=== PATIENT | male | born 1955 | race Caucasian/White ===

== ENCOUNTER 2019-06-02 16:48 | Inpatient (IN) ==
[2019-06-02 17:41] LABS: BASO# 0.01 X1000 (0.0-0.2); BASO% 0.1 % (0.0-0.8); EOS# 0.03 X1000 (0.0-0.7); EOS% 0.2 % (0.0-10.0); HEMATOCRIT 43.2 % (42.0-52.0); HEMOGLOBIN 14.4 g/dL (14.0-18.0); IMM GRAN# 0.03 X1000 (0.0-0.04); IMM GRAN% 0.2 % (0.0-0.5); LYMPH# 1.27 X1000 (1.2-3.4); LYMPH% 10.2 % (20.5-51.1); MCH 29.8 PG (27-31); MCHC 33.3 g/dL (33-37); MCV 89.3 FL (81-99); MONO# 0.99 X1000 (0.11-0.59); MPV 11.7 FL (7.4-10.4); NEUT# 10.07 X1000 (1.4-6.5); NEUT% 81.3 % (42.2-75.2); PLT 161 X1000 (130-400); RBC 4.84 XMIL (4.7-6.1); RDW 14.9 % (11.5-14.5)
--- NOTE | 2019-06-02 18:22 | Diag Imaging Result Doc PS360 ---
EXAM: CT HEAD W/O CONTRAST - 06/02/2019 HISTORY: AMS TECHNIQUE: CT head without contrast COMPARISON: None. FINDINGS: There is some generalized atrophic changes. There are mild chronic appearing microvascular ischemic changes. There is no indication of recent infarct, although acute infarcts may not be immediately visible. There is no evidence of intracranial hemorrhage, mass effect, midline shift, or hydrocephalus. There is mild prominence of the cisterna magna compatible with long-standing change. There is no evidence of skull fracture. Visualized portions of paranasal sinuses and mastoid air cells appear clear. IMPRESSION: No visible acute intracranial abnormality. No evidence of intracranial injury. No hemorrhage or mass effect. This exam was performed using automated exposure control, adjustment of mA or kV according to patient size, and/or use of iterative reconstruction technique. Electronically signed by Giacomo Bustamante 06/02/2019 6:20 PM
[2019-06-02 18:26] LABS: ALB/GLOB RATIO 0.8; ALBUMIN 3.6 g/dL (3.5-5.0); CALCIUM 8.2 mg/dL (8.8-10.2); CREATININE 2.3 mg/dL (0.7-1.2); POTASSIUM 3.7 mmol/L (3.5-5.1); TOTAL BILIRUBIN 0.74 mg/dL (0.20-1.00)
[2019-06-02] MEDS ORDERED: MORPHINE IV ONE (19:36)
[2019-06-02] MEDS ORDERED: ZOFRAN IV ONE (19:36)
[2019-06-02] MEDS ORDERED: NS 500 ML IV ONE (19:37)
--- NOTE | 2019-06-02 20:45 | Diag Imaging Result Doc PS360 ---
EXAM: CT ABDOMEN/PELVIS W/O CONTRAST - 06/02/2019 HISTORY: ap TECHNIQUE: CT renal stone search without contrast COMPARISON: None. FINDINGS: There is moderate bilateral hydronephrosis with perinephric edema. There is no obstructing ureteral stone identified. The urinary bladder is severely distended. The prostate is substantially enlarged, measuring 7.6 x 7.3 cm in maximum axial dimensions. There is mass effect on the base of the urinary bladder from the prostate. There is a 7 mm stone in the midline inferior urinary bladder, which is possibly located near the urethral orifice. There is no evidence of bowel obstruction. There is mild colonic diverticulosis. The perinephric edema extends near the cecum/ascending and descending colons. Alignment for this, there is no discrete appendicitis or diverticulitis identified. There is no free air. There are no calcified gallstones seen. There are lumbar spine degenerative changes noted. IMPRESSION: Moderate bilateral hydronephrosis, with perinephric edema. No obstructing ureteral stone identified. Severe distention of urinary bladder. Substantial enlargement of prostate, with mass effect on the base of the urinary bladder. 7 mm stone at midline inferior urinary bladder, which may be located near the urethral orifice. This exam was performed using automated exposure control, adjustment of mA or kV according to patient size, and/or use of iterative reconstruction technique. Electronically signed by Giacomo Bustamante 06/02/2019 8:43 PM
[2019-06-02 21:26] LABS: URINE SOURCE CLEAN CATCH
[2019-06-02 21:36] LABS: BILIRUBIN URINE NEGATIVE (NEGATIVE); BLOOD URINE MODERATE (NEGATIVE); COLOR ORANGE; GLUCOSE URINE NEGATIVE (NEGATIVE); KETONE URINE NEGATIVE (NEGATIVE); LEUKOCYTES URINE LARGE (NEGATIVE); NITRITE URINE NEGATIVE (NEGATIVE); PROTEIN URINE 50 mg/dL (NEGATIVE); SP GRAVITY URINE 1.017; TURBIDITY URINE TURBID (CLEAR); UROBILINOGEN URINE NORMAL (NORMAL)
[2019-06-02 21:45] LABS: UR EPITHELIAL CELLS <10 /HPF (<10); URINE BACTERIA 4+ /HPF; URINE RBC <10 /HPF (<10); URINE WBC TNTC /HPF (<10)
[2019-06-02 21:49] LABS: URINE CASTS NONE SEEN; URINE CRYSTALS NONE SEEN; URINE SMALL ROUND CELLS NONE SEEN; URINE YEAST NONE SEEN
[2019-06-03] MEDS ORDERED: ROCEPHIN 2 GM in NS 50 ML IV ONE (00:38)
[2019-06-03] MEDS ORDERED: MORPHINE IV ONE (00:38)
--- NOTE | 2019-06-03 01:05 | PROVIDER DOCUMENTATION ---
This chart was entered by Yana Swann Scribe, acting as scribe for Blair Floyd MD. HPI-Abdominal Pain/GI Problem - General Chief Complaint: Abdominal Pain Stated Complaint: CONFUSION/ABDOMINAL PAIN Time Seen by Provider: 06/02/19 17:03 Source: family (daughter) Unable to obtain history due to:: altered Allergies/Adverse Reactions: Patient Allergies Allergy/AdvReac Type Severity Reaction Status Date / Time No Known Allergies Allergy Verified 06/02/19 22:27 - History of Present Illness-ABD Nature of Presenting Problems: 63yom presents to ED cc abdominal pain, increased urinary retention, diarrhea and increased confusion. Daughter is at bedside and reports she was called to the assisted living where pt resides b/c the nurse found stool and urine all over pt room. Daughter reports pt kept saying, 'my stomach hurts'. Upon exam pt says 'yes' to everything and is standing beside bed bending over onto bed but is nontoxic in appearance. Pt has hx of enlarged prostate and dementia. Recently seen or treated by another doctor?: No Review of Systems - Adult - REVIEW OF SYSTEMS - ADULT ROS:: ROS per family (daughter) Constitutional: reports: see HPI. denies: chills, fever, fatique Eyes: reports: no symptoms reported Ears, Nose, Mouth & Throat: reports: no symptoms reported Cardiovascular: reports: no symptoms reported Respiratory: reports: no symptoms reported Gastrointestinal: reports: see HPI, abdominal pain, diarrhea. denies: nausea, vomiting Genitourinary: reports: see HPI, urinary retention (increased) Musculoskeletal: reports: no symptoms reported Integumentary: reports: no symptoms reported Neurological: reports: see HPI, other (increased confusion) Psychiatric: reports: no symptoms reported Endocrine: reports: no symptoms reported Hematologic/Lymphatic: reports: no symptoms reported Allergic/Immunologic: reports: no symptoms reported All Other Systems: Reviewed and Negative Past History - Adult - PAST MEDICAL HISTORY-ADULT Review of Records: reports: Nursing Assessment Review, Medications Reviewed, Social history reviewed & non-contributory. Major Childhood Illnesses: reports: denies history Cardiovascular: reports: denies history Respiratory: reports: denies history Gastrointestinal: reports: denies history Obstetrical/Gynecological: reports: denies history Genitourinary: reports: denies history Musculoskeletal: reports: denies history Neurological: reports: denies history Endocrine/Immune: reports: denies history Other Conditions: reports: denies history - IMMUNIZATION STATUS Childhood Immunizations: See Nurse Assessment Flu Vaccine: See Nurse Assessment - FAMILY HISTORY Family History: reviewed, not pertinent Physical Exam-General - PHYSICAL EXAM-ADULT Initial Vital Signs Reviewed: Yes - CONSTITUTIONAL General Appearance: appears well, alert, mild distress. negative: anxious, combative - EYES Eyes: PERRL/EOMI, pink conjunctivae. negative: photophobia - HEAD, EARS, NOSE, MOUTH & THROAT HENMT: normocephalic/atraumatic, moist mucous membranes. negative: angioedema - RESPIRATORY Respiratory: chest non-tender, lungs clear, normal breath sounds. negative: stridor, wheezing - CARDIOVASCULAR Cardiovascular: normal peripheral pulses, regular rate, rhythm, no edema. negative: bradycardia, tachycardia - MUSCULOSKELETAL Extremity: normal range of motion, normal inspection. negative: deformity - SKIN Integumentary: normal color. negative: diaphoresis, ecchymosis - PSYCHIATRIC Psych/Mental Status: normal mood/affect, oriented x 3. negative: anxious, disheveled Progress - PLAN OF CARE/RESULTS Progress/Plan/Lab Results: Vital Signs - 8 hr 06/02/19 17:00 Temperature 98.2 F Pulse Rate 84 Respiratory Rate 16 Blood Pressure 153/91 O2 Sat by Pulse Oximetry 97 Laboratory Results - last 24 hr 06/02/19 06/02/19 17:14 17:14 WBC 12.40 H RBC 4.84 Hgb 14.4 Hct 43.2 MCV 89.3 MCH 29.8 MCHC 33.3 RDW Std Deviation 14.9 H Plt Count 161 MPV 11.7 H Immature Gran % (Auto) 0.2 Neut % (Auto) 81.3 H Lymph % (Auto) 10.2 L Randolph % (Auto) 8.0 Eos % (Auto) 0.2 Baso % (Auto) 0.1 Immature Gran # (Auto) 0.03 Neut # (Auto) 10.07 H Lymph # (Auto) 1.27 Randolph # (Auto) 0.99 H Eos # (Auto) 0.03 Baso # (Auto) 0.01 Sodium 136 Potassium 3.7 Chloride 96 L Carbon Dioxide 20 L Anion Gap 20 BUN 56 H Creatinine 2.3 H Estimated GFR/1.73 m2 29 BUN/Creatinine Ratio 24 Glucose 145 H Calculated Osmolality 290 Calcium 8.2 L Total Bilirubin 0.74 AST 28 ALT 17 Alkaline Phosphatase 79 Total Protein 8.0 Albumin 3.6 Globulin 4.4 Albumin/Globulin Ratio 0.8 Amylase 29 Lipase 29 Orders Category Date Time Status Saline Loc NOW Care 06/02/19 17:[address] ABD/PELVIS W/IV CONT ONLY [CT] Stat Exams 06/02/19 19:[address] ABDOMEN/PELVIS W/O CONTRAST [CT] Stat Exams 06/02/19 19:[address] HEAD W/O CONTRAST [CT] Stat Exams 06/02/19 17:04 Completed AMYLASE [CHEM] Stat Lab 06/02/19 17:14 Completed CBC WITH DIFF [HEME] Stat Lab 06/02/19 17:14 Completed COMPREHENSIVE METABOLIC PANEL [CHEM] Stat Lab 06/02/19 17:14 Completed LIPASE [CHEM] Stat Lab 06/02/19 17:14 Completed UA NIMS W/REFLEX CULT [URINALYSIS] Stat Lab 06/02/19 17:04 Uncollected 0.9% Sodium Chloride Inj [Ns] 500 ml Med 06/02/19 19:37 Active IV 999 mls/hr Morphine Med 06/02/19 19:36 Discontinued 4 mg IV NOW ONE Ondansetron [Zofran] Med 06/02/19 19:36 Discontinued 4 mg IV NOW ONE Result Diagrams: 06/02/19 17:14 06/02/19 17:14 - CT/MRI 1 CT Study: Head Impression: See EMR Report (IMPRESSION: No visible acute intracranial abnormality. No evidence of intracranial injury. No hemorrhage or mass effect. This exam was performed using automated exposure control, adjustment of mA or kV according to patient size, and/or use of iterative reconstruction technique. Electronically signed by [employer] 06/02/2019 6:20 PM) 2 CT Study: Abdomen, Pelvis Impression: See EMR Report (IMPRESSION: Moderate bilateral hydronephrosis, with perinephric edema. No obstructing ureteral stone identified. Severe distention of urinary bladder. Substantial enlargement of prostate, with mass effect on the base of the urinary bladder. 7 mm stone at midline inferior urinary bladder, which may be located near the urethral orifice. This exam was performed using automated exposure control, adjustment of mA or kV according to patient size, and/or use of iterative reconstruction technique. Electronically signed by [employer] 06/02/2019 8:43 PM) - CONSULTS/PCP/HOSPITALIST Notification #1 *Consult/PCP/Hospitalist*: Dr. Dougherty/Urologist Time Discussed: 23:11 Consult Disposition: Will see in ED #2 Consult: Dr. Summers Time Discussed: 01:02 Consult Disposition: Admit (accepted pt) Departure - Departure Date of Disposition Decision: 06/02/19 Time of Disposition Decision: 01:02 DIAGNOSIS: Urinary retention UTI (urinary tract infection) Qualifiers: Urinary tract infection type: acute cystitis Hematuria presence: without hematuria Qualified Code(s): N30.00 - Acute cystitis without hematuria Disposition: ADMITTED INPATIENT 09 Certified Medical Emergency: Emergent Condition: Stable Additional Freetext Instructions: ED Follow Up Instructions: You have been treated by a care provider in the Emergency Department. These instructions are being provided to you so you can have an understanding of how to care for yourself upon discharge. Upon discharge from the Emergency Department, you are responsible for making arrangements for follow-up care by a physician of your choice. Take all prescribed medications as directed. Return to the Emergency Department immediately for any new or worsening symptoms. You may call the Physician Referral phone number at [phone] to obtain a list of Physicians who are taking new patients. Referrals and Follow-Ups: None,PCP [Primary Care Provider] - - Critical Care Note This patient required my direct & personal management of CC.: No Attestation - Physician/ AIDE Attestation Patient care was provided by Advanced Practice Provider:: No The physician spent face to face time with patient:: Yes Advanced Practice Provider documentation review:: Supervising physician onsite and consulted in the evaluation and care of this patient. The physician did have a face to face encounter with the patient. This chart was documented by the indicated scribe, (Yana Swann Scribe) and accurately reflects the services I performed and decisions made by me, Blair Floyd MD, as attested by the provider's signature.
[2019-06-03] MEDS ORDERED: ZOFRAN IV PRN (02:27)
[2019-06-03] MEDS ORDERED: MAXIPIME 1 GM in NS 50 ML IV SCH (02:27)
[2019-06-03] MEDS: NS 1,000 ML IV SCH ×2 (03:05→15:48)
[2019-06-03] MEDS: HEPARIN SUBQ SCH ×2 (03:43→15:46)
--- NOTE | 2019-06-03 05:59 | HISTORY AND PHYSICAL ---
REASON FOR ADMISSION: Acute confusion and difficulty voiding. HISTORY: Mr. Michael Pringle is a 63-year-old male with a past medical history of BPH, hypertension, and dementia who resides in a [facility] facility. He in the past has had prior episodes where he developed acute urinary retention. The daughter informs me that she was called to the fpc facility because the nurses had said her dad was more confused than usual. When she got there, she saw him in a very peculiar stance leaning forward and in distress complaining of lower abdominal pain. She says based on the upper prior episodes of acute urinary retention, she knew that he probably had retention problem, and they brought him to the hospital to be evaluated. The ER had difficulty getting a catheter in him, and had to call the urologist who remarks that this was the largest prostate they had ever seen. Currently, the patient said he feels much better since the insertion of the catheter. No antecedent fever or chills. The daughter does report that he was more confused than usual, but has calmed down since the catheter has been inserted. The patient is not a very good historian for obvious reasons. He denies any headaches or visual symptoms. No cardiorespiratory complaints. No antecedent hematuria or stools having some blood. No bleeding from any other orifice. REVIEW OF SYSTEMS: Twelve system review was done but limited. Positive findings noted as above except the patient had been having a few loose stools 2 to 3 days prior to this event, but no blood. He also reported having decreased appetite for the last 2 days. ALLERGIES: No known allergies. MEDICATIONS: List not available for review. PAST SURGICAL HISTORY: Appendectomy. Thyroidectomy. Testicular surgery. Kidney stone removal. Retinal surgery. SOCIAL HISTORY: Does not smoke, drink, or use illicit drugs. Lives in a fpc facility. FAMILY HISTORY: Notable for coronary artery disease. PRIMARY CARE PHYSICIAN: Shavonne Nolan LABORATORY: White count 58566, hemoglobin and hematocrit 12 and 43, and platelets 161,000 with 81% neutrophils. BUN is 66 and creatinine 2.3. Glucose 145. Calcium 8.2. Urinalysis with moderate blood, large leukocytes, urk-ogespkbd-mx-count WBCs, 4+ bacteria. Head CT was negative for any acute intracranial process, but CAT scan showed a very distended bladder with prostate measures 7 x 7 cm. There is a mass effect in the base of bladder from the prostate. A 7 mm stone midline inferior bladder near the ureteral orifice with moderate bilateral hydronephrosis and perinephric edema noted on CAT scan. PHYSICAL EXAMINATION: GENERAL: Calm and pleasant, elderly man who is laying in bed. He is alert and oriented only to person. VITAL SIGNS: Blood pressure 132/91, heart rate 83, respirations 18, temperature 98.1, and 98% on room air. HEENT: Head is normocephalic, atraumatic. Eyes: PERRLA, EOMI. He is anicteric, not pale. ENT exam is grossly normal. NECK: Supple. No JVD or carotid bruit. No thyromegaly. CHEST: Clear to auscultation. Good air entry both lung terrell. CARDIOVASCULAR: First and second heart sounds heard. No gallops, murmurs, or rubs. Rhythm is regular. ABDOMEN: Tenderness but no rebound or guarding. No CVA tenderness. Bowel sounds are hypoactive. RECTAL: Deferred at this time. EXTREMITIES: Good distal pulses. Volumes regular and symmetrical. No edema, clubbing or peripheral cyanosis. NEUROLOGICAL: No gross focal deficits. SKIN: Intact. No breakdown, lesions, or erythema. MUSCULOSKELETAL: Exam is grossly normal. ASSESSMENT: 1. Acute urinary retention secondary to BPH. 2. BPH. 3. Probable urinary tract infection. 4. Dementia. 5. Acute kidney injury probably secondary to poor oral intake and obstructive uropathy. PLAN: Patient will be hydrated. Strict I Os with strict input and output matching. Switch patient to Maxipime because of the patient's location in the facility to cover for remote possibility of Pseudomonas. Follow urine cultures. The patient's medication list is not available, but I do anticipate he will be on probably alpha reductase inhibitor and alpha receptor aneudy in light of her symptoms. Urologist was by to see him, and will follow up with him in the morning. Other than that, we have nothing else to offer the patient other than the aforementioned plan. No indication at this point. Consult claim trainee. Will need fluids and time to determine if patient's renal function will worsen. Please observe closely for post obstructive diuretic phase and to match I's and O's. cc: Primary Care Physician MD Shavonne Bennett
[2019-06-03] MEDS ORDERED: MORPHINE IV PRN (07:30)
[2019-06-03 08:31] LABS: HEMOGLOBIN A1C 5.8 % (4.8-6.0)
--- NOTE | 2019-06-03 08:33 | CONSULTATION ---
DATE OF CONSULTATION: 06/03/2019 CHIEF COMPLAINT: Inability to urinate with distended bladder. HISTORY OF PRESENT ILLNESS: Mr. Pringle is a 63-year-old who is a intermediate patient who has a history of dementia and cannot give any other history. The patient was brought in to the emergency room due to confusion as well as abdominal pain. A CT scan was performed which showed a very enlarged prostate with a distended bladder as well as significant right hydronephrosis down to the bladder itself with what appears reflux of urine bilaterally as he has mild to moderate bilateral hydronephrosis. Urology was consulted for catheter placement. There was no family at bedside and patient cannot interact with me to discuss. I reviewed his CT scan which showed a very distended bladder with a significant enlarged prostate with evidence of right hydronephrosis with some perinephric stranding on the right side with no obvious stone seen within the ureter itself. I think patient is having retention leading to his abdominal pain. The patient is unable to communicate so unable to obtain thorough physical exam PAST SURGICAL HISTORY, REVIEW OF SYSTEMS, ALLERGIES OR HOME MEDICATIONS: Unable to obtain at the time. After talking with his daughter this morning: ALLERGIES: NKDA. MEDICATIONS: Flomax 0.4 mg PAST MEDICAL HISTORY: 1. BPH 2. Dementia PAST SURGICAL HISTORY: 1. Appendectomy 2. Prostate Biopsy 3. Thyroidectomy 4. Kidney stone removal 5. Retinal surgery OBJECTIVE: Temperature 98.2, heart rate 76, blood pressure 156/91, oxygen saturation 97% on room air. General: Alert and oriented to person, but not place, time or situation. Respiratory: No increased work or breathing or audible wheezing. Cardiovascular: Normal rate and rhythm, no evidence of lower extremity edema. HEENT: Normocephalic, atraumatic. Pupils equal, round, reactive to light. : Normal phallus with orthoptic meatus. Evidence of blood at meatus and overlying suprapubic region. There is suprapubic tenderness to palpation and bladder distention. Normal phallus without lesions. ARMINDA: Significant enlarged prostate without masses or asymmetry. Extremities: The patient is moving all extremities. Neurologic: Alert but not oriented to place, time or situation. LABS: White blood cell count 12.4, hemoglobin 14.4, hematocrit 43.2, platelets 161,000. Sodium 136, potassium 3.7, chloride 96, bicarb 20, BUN 56, creatinine 2.3, glucose 145, calcium 8.2. IMAGING: CT scan removed which shows significant bladder distention with large heterogenous prostate. Evidence of bladder hydroureteronephrosis right greater than left. ASSESSMENT AND PLAN: Mr. Pringle is a 63-year-old who was a consult regarding a difficult catheter placement. No one at the bedside to provide a thorough past medical history, but was able to talk with his daughter this morning. He has not been seen at [place] previously, but was seen for Dr. Ramirez for elevated PSA and has undergo prior prostate biopsy. The patient came in complaining of abdominal pain. Nursing staff attempted to place catheters on at least 2 separate occasions and were unable to be successful. Urology was consulted for further recommendations. I evaluated the patient. The patient has normal phallus with blood present at the urethral meatus. Bilateral testicles palpated without masses or nodularity. Prostate is quite large and in firm. Using sterile technique, ultimately obtained a ZIPwire was able to pass through the urethra with ease up into the bladder and then passed a 18- [place] tip catheter over the wire into the bladder with return of a large amount of urine. There was light pink urine that returned. The balloon was inflated with 10 mL sterile water and placed to gravity drainage. Approximately 600 mL was returned while I was at bedside with several small clots that returned likely from prior difficult catheterization attempts. Would leave indwelling catheter in for at least 3 days and attempt a voiding trial at that time. Would plan to repeat a renal ultrasound to assess for resolution of hydronephrosis. We will continue to follow, please call with questions. cc: Will Dougherty MD [facility]
[2019-06-03 08:42] LABS: ALBUMIN 3.2 g/dL (3.5-5.0); CALCIUM 8.2 mg/dL (8.8-10.2); CREATININE 1.8 mg/dL (0.7-1.2); PHOSPHORUS 3.6 mg/dL (2.7-4.5); POTASSIUM 3.9 mmol/L (3.5-5.1)
[2019-06-03 09:47] LABS: HEMATOCRIT 42.4 % (42.0-52.0); HEMOGLOBIN 13.8 g/dL (14.0-18.0); MCH 29.4 PG (27-31); MCHC 32.5 g/dL (33-37); MCV 90.4 FL (81-99); MPV 12.2 FL (7.4-10.4); RBC 4.69 XMIL (4.7-6.1); RDW 14.9 % (11.5-14.5); WBC 8.15 X1000 (4.8-10.8)
[2019-06-03] MEDS: 1/2 NS 1,000 ML IV SCH (13:37)
[2019-06-03] MEDS: MAXIPIME 1 GM in NS 50 ML IV SCH (15:47)
[2019-06-03] MEDS: FLOMAX PO SCH (21:19)
[2019-06-04] MEDS: HEPARIN SUBQ SCH (01:52)
[2019-06-04] MEDS: 1/2 NS 1,000 ML IV SCH (01:52)
[2019-06-04] MEDS: MAXIPIME 1 GM in NS 50 ML IV SCH ×2 (01:59→15:59)
[2019-06-04 05:35] LABS: BASO# 0.01 X1000 (0.0-0.2); BASO% 0.2 % (0.0-0.8); EOS# 0.14 X1000 (0.0-0.7); EOS% 2.4 % (0.0-10.0); HEMATOCRIT 37.5 % (42.0-52.0); HEMOGLOBIN 12.5 g/dL (14.0-18.0); LYMPH# 1.55 X1000 (1.2-3.4); LYMPH% 26.7 % (20.5-51.1); MCH 29.6 PG (27-31); MCHC 33.3 g/dL (33-37); MCV 88.9 FL (81-99); MONO# 0.76 X1000 (0.11-0.59); MONO% 13.1 % (1.7-9.3); MPV 12.1 FL (7.4-10.4); NEUT# 3.34 X1000 (1.4-6.5); NEUT% 57.6 % (42.2-75.2); PLT 102 X1000 (130-400); RBC 4.22 XMIL (4.7-6.1); RDW 14.1 % (11.5-14.5)
[2019-06-04 06:31] LABS: AGAP 12; BUN 26 mg/dL (8-22); CALCIUM 7.7 mg/dL (8.8-10.2); CHLORIDE 100 mmol/L (98-107); COSMO 275; ESTIMATED GFR > 60; GLUCOSE 103 mg/dL (70-104); POTASSIUM 2.9 mmol/L (3.5-5.1); SODIUM 135 mmol/L (136-145); TCO2 23 mmol/L (25-35)
[2019-06-04] MEDS ORDERED: KLOR-CON PO ONE (07:40)
--- NOTE | 2019-06-04 08:36 | PROGRESS NOTE ---
DATE: 06/04/2019 SUBJECTIVE: No acute events. Yesterday, the patient had some bloody urinary output which has cleared overnight. The catheter this morning is draining clear yellow urine, approximately 1.8 L recorded. The patient had some discomfort in his bladder. He denies any abdominal pain. I talked with ex- at bedside who states he rested comfortably. OBJECTIVE: Vital Signs: Temperature 97.4 degrees, heart rate 75, blood pressure 122/58, oxygen saturation 97% on room air. General: No acute distress. Resting comfortably in bed. Alert. Lund to person but not place, time, or situation. Respiratory: Good respiratory effort without audible wheezing or rales. Abdomen: Soft, nontender, nondistended. No palpable masses. : No suprapubic tenderness. No CVA tenderness. Urethral catheter in place, draining clear yellow urine. Labs: White blood cell count 5.8, hemoglobin 12.5, hematocrit 37.5, platelets 102,000. Sodium 135, potassium 2.9, chloride 100, bicarb 23, BUN 26, creatinine 1.0, glucose 103. Urine culture, no growth to date. ASSESSMENT AND PLAN: Mr. Pringle is a 63-year-old with benign prostatic hypertrophy and dementia, who presents in evaluation for urinary retention with difficult catheterization and bilateral hydronephrosis. The patient had a Regan catheter inserted on Sunday night into Sunday morning, had drained some bloody output yesterday which is clear today. This is likely related to the size of his prostate as well as postobstructive hematuria. The patient has a quite large prostate on exam and on CT scan. Would plan to keep indwelling catheter in today, potentially would go for a voiding trial tomorrow. We will plan to obtain a renal ultrasound to assess for resolution of hydronephrosis today. Renal functions returned to normal at 1. The patient appears comfortable. We will talk with daughter about long-term plans for his benign prostatic hypertrophy. I think it may be difficult for him long-term to urinate. He may need to consider surgical intervention versus long- term indwelling catheter. We will discuss these options with her and the patient. We will continue to monitor him from a urologic standpoint. Please call with questions or concerns. cc: MD TWAN Gutierrez
--- NOTE | 2019-06-04 13:35 | Diag Imaging Result Doc PS360 ---
EXAM: US RENAL 2 (RETROPER) COMPLETE HISTORY: Evaluation of resolution of hydronephroris TECHNIQUE: Renal ultrasound COMPARISON: CT from 06/02/2019 FINDINGS: The right kidney measures 13.5 x 6.6 x 6.6 cm. The left kidney measures 13.3 x 6.4 x 5.8 cm. Normal cortical thickness and renal echogenicity. There are several small scattered renal cysts. No renal stones. No pronounced hydronephrosis. IMPRESSION: Small scattered renal cysts. No definite hydronephrosis. Electronically signed by Ha James 06/04/2019 1:32 PM
--- NOTE | 2019-06-04 14:58 | PROGRESS NOTE ---
DATE: 06/04/2019 SUBJECTIVE: The patient is resting comfortably in bed. He states that he had a good night. No acute events noted overnight. OBJECTIVE: Vital Signs: Temperature 98.2 degrees, blood pressure 112/90, heart rate 76, respirations 14, O2 saturation is 95% on room air. General: This is a chronically ill-appearing, elderly male lying in bed, in no acute distress. Heart: S1, S2 normal. Regular rate and rhythm. Lungs: Equal air entry bilaterally. No wheezing. No rales. Abdomen: Positive bowel sounds. Soft, nontender, nondistended. Extremities: No edema. No cyanosis. LABS: Sodium 135, potassium 2.9, chloride 100, CO2 23, BUN 26, creatinine 1. ASSESSMENT AND PLAN: 1. Bilateral hydronephrosis with urinary retention. Improved. The patient's creatinine is now normal. IV fluids have been discontinued. Will defer to the urologist regarding a voiding trial and Regan catheter management. 2. Benign prostatic hypertrophy. The patient is currently on Flomax. The patient and his family will have a discussion regarding surgical intervention with the urologist. 3. Obstructive uropathy. Resolved. 4. Urinary tract infection. The urine culture is growing gram-positive cocci. We will await the results of the urine culture. Continue with antibiotic therapy. 5. Hypertension. Continue on Norvasc. 6. Thrombocytopenia. Will monitor the platelet count closely. 7. Hypokalemia. Replace potassium. 8. Continue with PT. cc: Caryn Kendall MD MTDD
[2019-06-04] MEDS: COLACE PO SCH (20:42)
[2019-06-04] MEDS: FLOMAX PO SCH (20:42)
[2019-06-04] MEDS: TYLENOL PO PRN (20:42)
[2019-06-05] MEDS: MAXIPIME 1 GM in NS 50 ML IV SCH (01:59)
[2019-06-05 05:53] LABS: AGAP 11; BUN 20 mg/dL (8-22); CALCIUM 7.9 mg/dL (8.8-10.2); CHLORIDE 101 mmol/L (98-107); COSMO 277; CREATININE 0.9 mg/dL (0.7-1.2); ESTIMATED GFR > 60; GLUCOSE 108 mg/dL (70-104); POTASSIUM 3.3 mmol/L (3.5-5.1); SODIUM 137 mmol/L (136-145); TCO2 25 mmol/L (25-35)
[2019-06-05] MEDS ORDERED: KLOR-CON PO ONE (07:00)
[2019-06-05] MEDS: MIRALAX PO SCH (08:54)
[2019-06-05] MEDS: COLACE PO SCH ×2 (08:54→20:02)
[2019-06-05] MEDS: FLOMAX PO SCH ×2 (08:58→20:02)
[2019-06-05] MEDS: PROSCAR PO SCH (08:58)
--- NOTE | 2019-06-05 09:08 | PROGRESS NOTE ---
DATE: 06/05/2019 SUBJECTIVE: No acute events overnight. His catheter is draining clear yellow urine. No evidence of any clots. 1500cc of urine recorded yesterday. The patient was able to have a bowel movement, and has been tolerating his diet. The patient underwent renal ultrasound yesterday which showed no evidence of hydronephrosis or renal mass. Several small renal cysts were seen bilaterally. OBJECTIVE: Temperature 98.7 degrees, heart rate 69, blood pressure 112/71, and oxygen saturation 97% on room air.General: No acute distress. Resting comfortably in bed. Alert and oriented to person and place, but not to time. Respiratory: Good respiratory effort without audible wheezing or rales. Abdomen: Soft, nontender, and nondistended. : No suprapubic tenderness. No CVA tenderness. Urethral catheter in place draining clear yellow urine. LABORATORY: Sodium 137, potassium 3.3, chloride 101, bicarbonate 25, BUN 20, creatinine 0.9, Calcium 7.9. IMAGING: Renal ultrasound performed yesterday which showed no evidence of hydronephrosis or renal mass with evidence of bilateral small renal cysts. ASSESSMENT AND PLAN: Mr. Pringle is a 63-year-old with BPH and dementia, who presents for evaluation for urinary retention and bilateral hydronephrosis. The patient had a Regan catheter inserted on Sunday night which was draining a clear yellow since the past 48 hours. The patient does have a quite large prostate on a CT scan, and had evidence of hydronephrosis on that scan. Renal ultrasound was performed yesterday which seems to show resolution of his hydronephrosis. Renal function is back to normal with a creatinine of 0.9 today. The catheter is draining clear yellow urine. I recommended removal of catheter today for voiding trial. If the patient continues to have issues with urination, the patient may need to consider surgical intervention and for his prostate to be excised or adjunct faculty for medical terminology indwelling catheter. Talking with his daughter, I recommended doubling his dose of Flomax and adding finasteride. Discussed the risks and the alternatives of this. They would like to try to pursue nonsurgical interventions at this time. We will start those today. The patient is to go home with these medications. We recommend treating his urinary tract infection, as we likely had prostatitis leading to his episode of retention. We will continue to monitor from a urologic standpoint. Please call with questions or concerns. cc: Will Dougherty MD MTDD
[2019-06-05] MEDS: SEPTRA DS PO SCH ×2 (10:12→20:02)
--- NOTE | 2019-06-05 10:30 | PROGRESS NOTE ---
DATE: 06/05/2019 SUBJECTIVE: The patient is sitting up in bed resting comfortably. His Regan catheter was removed this morning. OBJECTIVE: Vital Signs: Temperature 98.2 degrees, blood pressure 135/83, heart rate 68, respirations 15, and O2 saturations 95% on room air. General: This is a chronically ill- appearing elderly male sitting up in bed in no acute distress. Heart: S1, S2 normal. Regular rate and rhythm. Lungs: Clear to auscultation bilaterally. No wheezing. No rales. No rhonchi. Abdomen: Positive bowel sounds. Soft, nontender, and nondistended. Extremities: No edema. No cyanosis. Neurologic: The patient is alert and oriented x3. LABORATORY: Sodium 137, potassium 3.3, chloride 101, CO2 25, BUN 20, creatinine 0.9, glucose 108, and magnesium 1.9. ASSESSMENT AND PLAN: 1. Bilateral hydronephrosis with urinary retention. The hydronephrosis appears to have resolved. The patient's medications have been adjusted by the urologist. The patient is currently undergoing a voiding trial. 2. Benign prostatic hypertrophy. The patient is now on Flomax twice a day and finasteride daily. 3. Obstructive uropathy. Resolved. 4. Urinary tract infection secondary to Staphylococcus epidermidis. We will start the patient on Bactrim. 5. Hypertension. Controlled. Continue on Norvasc. 6. Hypokalemia. We will replace the potassium. 7. Continue with physical therapy. Hopefully, the patient can be discharged home tomorrow. cc: Caryn Kendall MD
[2019-06-05] MEDS: TYLENOL PO PRN (20:06)
[2019-06-06 05:29] LABS: HEMATOCRIT 40.8 % (42.0-52.0); HEMOGLOBIN 13.7 g/dL (14.0-18.0); MCV 88.1 FL (81-99); RBC 4.63 XMIL (4.7-6.1); WBC 7.37 X1000 (4.8-10.8)
[2019-06-06 05:30] LABS: MCH 29.6 PG (27-31); MCHC 33.6 g/dL (33-37); MPV 11.2 FL (7.4-10.4); RDW 13.8 % (11.5-14.5)
[2019-06-06 05:49] LABS: CALCIUM 8.5 mg/dL (8.8-10.2); CREATININE 1.8 mg/dL (0.7-1.2); POTASSIUM 3.4 mmol/L (3.5-5.1)
[2019-06-06] MEDS ORDERED: KLOR-CON PO ONE (05:59)
[2019-06-06] MEDS: NS 1,000 ML IV SCH ×2 (06:17→18:28)
[2019-06-06] MEDS: PROSCAR PO SCH (08:35)
[2019-06-06] MEDS: COLACE PO SCH ×2 (08:35→21:02)
[2019-06-06] MEDS: MIRALAX PO SCH (08:35)
[2019-06-06] MEDS: FLOMAX PO SCH ×2 (08:35→21:02)
--- NOTE | 2019-06-06 09:36 | PROGRESS NOTE ---
DATE: 06/06/2019 SUBJECTIVE: No acute events overnight. The patient's Regan catheter was removed yesterday and patient was able to void multiple times. Unfortunately patient is voiding small volumes and not seem to be emptying to completion. No clots are being passed. The patient seems to be resting comfortably. His daughter states he does not hurt when he urinates. The patient had 450cc recorded with 3 uncalculated voids. OBJECTIVE: Temperature 99 degrees, heart rate 60, blood pressure 129/66, oxygen 94% on room air. General no acute distress. Resting comfortably in bed. Alert and oriented to person and place, but not time. Respiratory: Good respiratory effort without audible wheezing or rales. Cardiovascular: No evidence lower extremity edema. No evidence of tachycardia. Abdomen: Soft, nontender, nondistended. No palpable masses or hepatosplenomegaly. : No suprapubic tenderness. No CVA tenderness. Musculoskeletal: Moving all extremities. LABS: White blood cell count 7.4, hemoglobin 13.7, hematocrit 40.8, platelets 128,000. Sodium 138, potassium 3.4, chloride 101, bicarb 23, BUN 22, creatinine 1.8, glucose 112. ASSESSMENT/PLAN: Mr. Pringle is a 63-year-old with BPH and dementia, who presents in evaluation of urinary retention and bilateral hydronephrosis. The patient had a Regan catheter inserted on Sunday night, which is draining clear yellow urine for 48 hours. His catheter was removed yesterday and patient was able to void. The patient had bilateral hydronephrosis on a CT scan and had repeat renal ultrasound which showed resolution of this. Initially his creatinine returned down to 0.9. However, after his catheter was removed, his creatinine is increased up to 1.8 today. We will plan to obtain a postvoid residual today as patient has only been peeing small volumes, even though he was recorded as having multiple voids yesterday. The patient is not distended on exam and not having any pain this morning. If the patient has elevated PVR, recommended insertion of catheter. We will continue patient on Flomax BID and finasteride. Recommend trending his urinary tract infection as I think he had an episode of prostatitis that lead him to have worsening urinary retention We will continue to monitor from a urologic standpoint. Please call with questions or concerns. cc: Will Dougherty MD MTDD
--- NOTE | 2019-06-06 13:45 | PROGRESS NOTE ---
DATE: 06/06/2019 SUBJECTIVE: The patient is resting comfortably in bed. This morning the patient was noted to have over 1 L of urine in his bladder. A Regan catheter has been reinserted. OBJECTIVE: Vital Signs: Temperature 98.4 degrees, blood pressure 126/72, heart rate 70, respirations 18, O2 saturation 98% on room air. Intake 800, output 1 L. General: This is a chronically ill-appearing elderly male lying in bed in no acute distress. Heart: S1, S2 normal. Regular rate and rhythm. Lungs: Clear to auscultation bilaterally. Abdomen: Positive bowel sounds. Soft, nontender, nondistended. Extremities: No edema, no cyanosis. Neurologic: The patient is alert and oriented. LABS: White blood cell count 7.3, hemoglobin 13, hematocrit 40, platelets 128,000. Sodium 138, potassium 3.4, chloride 101, CO2 23, BUN 22, creatinine 1.8. ASSESSMENT AND PLAN: 1. Bilateral hydronephrosis with urinary retention. The hydronephrosis has resolved. However, after the patient's Regan catheter was removed yesterday, he continues to retain urine if the catheter is removed. His catheter has been reinserted this morning due to significant urinary retention. Further management as per the urologist. 2. Acute kidney injury. This is likely secondary to urinary retention. The patient's Regan catheter was replaced this morning. We will continue to monitor the renal function closely. 3. Urinary tract infection secondary to Staphylococcus epidermidis. We will repeat the urinalysis and urine culture. 4. Benign prostatic hypertrophy. Aware. Continue on Flomax and finasteride. 5. Hypertension. Controlled. Continue Norvasc. 6. Hypokalemia. Will replace the patient's potassium. 7. Thrombocytopenia. Will monitor the platelet count closely. 8. Continue with physical therapy. 9. Disposition. Will plan to discharge the patient home once cleared by the urologist. cc: Caryn Kendall MD
[2019-06-06 15:47] LABS: URINE SOURCE CATH
[2019-06-06 15:50] LABS: URINE WBC <10 /HPF (<10)
[2019-06-06 15:51] LABS: BILIRUBIN URINE NEGATIVE (NEGATIVE); BLOOD URINE MODERATE (NEGATIVE); COLOR YELLOW; GLUCOSE URINE NEGATIVE (NEGATIVE); KETONE URINE NEGATIVE (NEGATIVE); LEUKOCYTES URINE NEGATIVE (NEGATIVE); NITRITE URINE NEGATIVE (NEGATIVE); PROTEIN URINE NEGATIVE (NEGATIVE); SP GRAVITY URINE 1.007; TURBIDITY URINE CLEAR (CLEAR); UR EPITHELIAL CELLS <10 /HPF (<10); URINE BACTERIA NEGATIVE /HPF; URINE RBC <10 /HPF (<10); UROBILINOGEN URINE NORMAL (NORMAL)
[2019-06-06 16:01] LABS: UR CREAT RANDOM 31.9 mg/dL (14-26); UR PROT RANDOM 6.3 mg/dL
[2019-06-06] MEDS: SEPTRA DS PO SCH (21:02)
[2019-06-07 06:29] LABS: AGAP 11; BUN 14 mg/dL (8-22); CALCIUM 8.3 mg/dL (8.8-10.2); CHLORIDE 105 mmol/L (98-107); COSMO 278; CREATININE 1.1 mg/dL (0.7-1.2); ESTIMATED GFR > 60; GLUCOSE 103 mg/dL (70-104); POTASSIUM 3.8 mmol/L (3.5-5.1); SODIUM 139 mmol/L (136-145); TCO2 23 mmol/L (25-35)
[2019-06-07 08:42] VITALS: BP 113/69
[2019-06-07] MEDS: FLOMAX PO SCH (09:18)
[2019-06-07] MEDS: COLACE PO SCH (09:18)
[2019-06-07] MEDS: MIRALAX PO SCH ×2 (09:18→09:21)
[2019-06-07] MEDS: PROSCAR PO SCH (09:18)
[2019-06-07] MEDS: SEPTRA DS PO SCH (09:18)
--- NOTE | 2019-06-07 09:46 | PROGRESS NOTE ---
DATE: 06/07/2019 SUBJECTIVE: No acute events yesterday. The patient had a PVR yesterday which showed greater than 999 mL in his bladder and had a catheter was reinserted, at which point the catheter drained approximately 1800 mL. The patient has been comfortable since then. He remains afebrile. The patient had a increase in his creatinine yesterday, which is down trended to 1.1 today. No fevers or chills. The patient was ambulatory yesterday per his ex-. OBJECTIVE: Vital signs: Temperature 98.1 degrees, heart rate 86, blood pressure 113/69, oxygen 98% on room air. General: No acute distress. Resting comfortably in bed. Alert and oriented to person, place, and time. Respiratory: Good respiratory effort without audible wheezing or rales. Cardiovascular: Regular rate and rhythm. Abdomen: Soft, nontender, nondistended. No palpable masses or hepatosplenomegaly. : No suprapubic tenderness. No CVA tenderness. Urethral catheter in place, draining clear yellow urine. LABS: Sodium 139, potassium 3.8, chloride 105, bicarb 23, BUN 14, creatinine 1.1, glucose 103. ASSESSMENT/PLAN: Mr. Pringle is a 63-year-old with history of BPH and dementia, who presents in consultation for urinary retention. The patient had indwelling catheter inserted in the emergency room due to hydronephrosis and distended bladder. The patient's Regan catheter was removed on . The patient was able to urinate, however, only small volumes. PVR yesterday showed persistently elevated PVR over 999 mL. Catheter was reinserted with 1800 mL return. The patient has done well since then. His renal function has returned to normal at 1.1 today. Overall, he is doing better. The patient was started on Flomax b.i.d. as well as finasteride 5mg. I talked with both his daughter and ex- regarding management of the indwelling catheter. I think it is best for him to keep the catheter for now and see if he gets any relief with the medications. The patient seems to be dealing with voiding complaints for a number of years now due to his high PVR. I expect that he is not emptying his bladder well chronically and likely would have minimal benefit from surgical intervention. Discussed the use of urodynamics to better assess bladder function. However, I am not sure the patient will be able to be interactive enough to benefit from. Discussed with ex- today regarding management with suprapubic tube. This may be a better long-term option if he is not a candidate for surgical intervention. We will plan to see him in the outpatient setting. I would treat him with antibiotics for 1 week to ensure resolution of his episode of prostatitis. Likely can be discharged from a urologic standpoint. We will continue to monitor while inpatient from a urologic standpoint. Please call with questions or concerns. cc: Will Dougherty MD MTDD
--- NOTE | 2019-06-15 18:22 | DISCHARGE SUMMARY ---
ADMISSION DATE: 06/02/2019 DISCHARGE DATE: 06/07/2019 FINAL DISCHARGE DIAGNOSES: 1. Bilateral hydronephrosis with urinary retention. 2. Acute kidney injury secondary to obstructive uropathy. 3. Enlarged prostate with benign prostatic hypertrophy. 4. Urinary tract infection secondary to Staphylococcus epidermidis. 5. Hypertension. 6. Hypokalemia. 7. Thrombocytopenia. CONSULTATIONS: Urology consultation with Dr. Dougherty. IMAGING: CT of the abdomen and pelvis performed on 06/02/2019 that revealed moderate bilateral hydronephrosis with perinephric edema. No obstructing ureteral stone identified. Severe distention of the urinary bladder. Enlargement of the prostate with mass effect on the base of the urinary bladder. 7 mm stone at the inferior urinary bladder. HOSPITAL COURSE: Mr. Pringle 63-year-old male with a history of an enlarged prostate, hypertension and dementia who was brought to the ER due to confusion and issues with voiding. Upon arrival to the ER, the patient was noted to have a BUN of 66 with a creatinine of 2.3 and a white blood cell count of 12,000. Urinalysis was performed that revealed a urinary tract infection was present. Also the patient had a CAT scan of the abdomen and pelvis that revealed severe distention of the urinary bladder as well as enlargement of the prostate with bilateral moderate hydronephrosis and a urinary bladder stone. The patient was admitted to the hospitalist service. Urology was consulted and a Regan catheter was placed to decompress the bladder. The patient was started on IV fluids and IV antibiotic therapy and cultures were obtained. The patient was seen by the urologist who discussed possible surgical intervention with the patient and his daughter. The patient responded well to conservative management and decompression with a Regan catheter. A voiding trial was attempted after the patient's creatinine normalized. Unfortunately when the catheter was removed, the patient started to retain urine again and had almost close to 900 mL of urine in his bladder so the catheter was reinserted and the patient was able to urinate appropriately and his creatinine improved again. The patient was started on finasteride as well as Flomax twice a day. The urine culture grew out Staphylococcus epidermidis and the patient was placed on Bactrim. The patient was ultimately cleared for discharge back to his assisted living facility with a Regan catheter in place and with instructions to follow up with Dr. Dougherty as outpatient to discuss possible surgical intervention for the patient's recurrent urinary retention issues. DISCHARGE MEDICATIONS: 1. Bactrim DS 1 tab oral every 12 hours. 2. Flomax 0.4 mg oral twice a day. 3. Proscar 5 mg oral daily. 4. Multivitamin 1 tab oral daily. 5. Pravachol 40 mg p.o. at bedtime. 6. Norvasc 5 mg oral daily. DISCHARGE DIET: Low-sodium diet. ACTIVITY: As tolerated. FOLLOWUP INSTRUCTIONS: The patient will need to follow up with Dr. Dougherty as scheduled by his clinic. cc: Caryn Kendall MD
== END 2019-06-07 12:10 | disposition home or self-care (01) | DRG 682 ==
LOC: ED 16:48 → 1N 06-03 01:50 → SUATTDRO 06-03 01:50
PROVIDERS: ATTEND Internal Medicine